=== PATIENT | male | born 1945 ===

== ENCOUNTER 2019-11-11 09:17 | Outpatient (CLI) | payer MEDICARE, MEDICAID, SELFPAY ==
--- NOTE | ~2019-11-11 | US_ITS ---
EXAMINATION: US retroperitoneal comp DATE: 11/11/2019 10:06 INDICATION: Chronic flank pain, left greater than right. TECHNIQUE: Multiple ultrasound grayscale images of the kidneys were obtained. COMPARISON: 12/10/2016 FINDINGS: The right kidney measures 9.8 x 5.7 x 4.9 cm. The left kidney measures 10.0 x 5.2 x 5.6 cm. No interv al change in a 1.5 cm anechoic exophytic cyst at the lower pole of the right kidney. Also unchanged i s a cluster of 3 small anechoic cystsat the upper pole of the left kidney the largest measuring 2.6 c m in maximal diameter. There is no hydronephrosis in either kidney. No stones identified. The bladde r is normal with bilateral ureteral jets visualized on color Doppler. IMPRESSION: 1. No interval change in bilateral renal cysts. No hydronephrosis. Reviewed, dictated and finalized at location A.
== END 2019-11-11 09:18 | disposition home or self-care (01) ==
PROVIDERS: PCP Student in an Organized Health Care Education/Training Program; Visit Provider Student in an Organized Health Care Education/Training Program
DX: R10.9 Unspecified abdominal pain (principal); G89.29 Other chronic pain
CPT/HCPCS: 76770

== ENCOUNTER 2021-08-23 00:31 | Day surgery (SDC) | payer MEDICARE, SELFPAY ==
[2021-08-13 14:25] VITALS: BMI 34.8
--- NOTE | 2021-08-22 16:34 | WPDANESEPP ---
Anes - Eval Pre Procedure Procedure: Operation Date: 08/23/21 09:30 Proposed Procedures p Screening Colonoscopy - Ander Shell MD Date/Time: 08/22/21 16:34 Pre Op Diagnosis: hx of colon polyps Patient Data Age: 76 Gender: M Height: 1.68 m Weight: 98 kg Allergies Allergy/AdvReac Type Severity Reaction Status Date / Time lisinopril Allergy Unknown Anaphylaxis Verified 08/13/21 14:13 losartan AdvReac Hypotension Verified 08/13/21 14:13 Home Medications Medication Instructions Recorded Confirmed Type albuterol sulfate 1 puff INHALATION DAILY 08/13/21 08/13/21 History amlodipine 10 mg PO DAILY 08/13/21 08/13/21 History budesonide-formoterol [Symbicort] 1 puff INHALATION DAILY 08/13/21 08/13/21 History bumetanide 1 mg PO BID 08/13/21 08/13/21 History clopidogrel 75 mg PO DAILY 08/13/21 08/13/21 History empagliflozin [Jardiance] 25 mg PO DAILY 08/13/21 08/13/21 History finasteride 5 mg PO DAILY 08/13/21 08/13/21 History insulin aspart U-100 [Novolog 6 unit SUBCUT TIDWM 08/13/21 08/13/21 History Flexpen U-100 Insulin] insulin degludec [Tresiba 40 unit SUBCUT DAILY 08/13/21 08/13/21 History FlexTouch U-200] metformin 1,000 mg PO BID 08/13/21 08/13/21 History metoprolol tartrate 25 mg PO BID 08/13/21 08/13/21 History mirabegron [Myrbetriq] 50 mg PO DAILY 08/13/21 08/13/21 History oxybutynin chloride 10 mg PO DAILY 08/13/21 08/13/21 History rosuvastatin 40 mg PO DAILY 08/13/21 08/13/21 History spironolactone 25 mg PO DAILY 08/13/21 08/13/21 History Patient hx anesthesia problems: none Family hx anesthesia problems: none Results Review: All pre-operative results and documents have been reviewed as part of the pre-operative evaluation. [facility] Past Medical History Medical History (Updated 08/22/21 @ 16:39 by Brandyn Trejo CRNA) Arthritis Asthma CAD (coronary atherosclerotic disease) Diabetes H/O: HTN (hypertension) History of smoking Hyperlipidemia Obesity ИРИНА (obstructive sleep apnea) Surgical History Surgical History (Updated 08/22/21 @ 16:39 by Brandyn Trejo CRNA) Stented coronary artery Family History Family History Sibling Diabetes mellitus Family history of cardiovascular disease Mother Family history of cardiovascular disease, Onset Age: 69 Other Asthma Family history of arthritis Family history of congestive heart failure Family history of osteoporosis Hypertension Social History Social History Smoking status: Never smoker Alcohol intake: never Living arrangements: alone Spiritual care concerns: No Exam Day of Procedure 08/22/21 16:34 Patient weight: obese
[2021-08-23 08:45] VITALS: BP 140/64; PULSE 61; RESP 18; TEMP 35.3; O2SAT 99; BMI 34.0
--- NOTE | 2021-08-23 09:05 | WPDANESEFPP ---
Anes - Eval Final PreProcedure Day of Procedure 08/23/21 09:05 Patient weight: obese Heart: regular rate and rhythm Lungs: clear to auscultation Airway: Mallampati scale class II Neurological: alert and oriented Last oral intake: >/= 8 hours ASA classification: III Emergent: no Anesthetic plan: proceed Anesthesia type and monitoring: general GIVS and standard monitoring Results Review: All pre-operative results and documents have been reviewed as part of the pre-operative evaluation. Informed Consent: The patient's anesthetic plan and its attendant risks and benefits were discussed with the patient/family/POA. Questions were solicited and answers provided to the satisfaction of the patient/family/POA.
--- NOTE | 2021-08-23 09:09 | PM.HPGS ---
History of Present Illness History of Present Illness Consent: Risks, benefits, and alternatives have been discussed and questions answered. Patient agrees to proceed with procedure. Chief complaint: hx of colon polyps Narrative: Taz Sims is a 76 year old male with colon polyp in 2017 Review of Systems Constitutional: Constitutional: Denies headache(s) and Denies weakness Eyes: Eyes: Denies blurry vision ENT: Reports Normal hearing present, Denies headache(s) and Denies neck pain Cardiovascular: Cardiovascular: Denies chest pain and Denies dyspnea Respiratory: Respiratory: Denies dyspnea Gastrointestinal: Gastrointestinal: Reports no additional gastrointestinal complaints Genitourinary: Genitourinary: Denies dysuria Musculoskeletal: Musculoskeletal: Denies neck pain Integumentary/Breasts: Skin/Breast: Denies dry skin Neurologic: Reports Normal hearing present, Denies headache(s) and Denies weakness Psychiatric: Psychiatric: Denies anxiety Endocrine: Endocrine: Denies change in body appearance Hematologic/Lymphatic: Hematologic/Lymphatic: Denies easy bleeding Allergic/Immunologic: Allergic/Immunologic: Denies urticaria PMFSH Past Medical History Medical History (Updated 08/23/21 @ 09:09 by Ander Shell MD) Adenomatous colon polyp Arthritis Asthma CAD (coronary atherosclerotic disease) Diabetes H/O: HTN (hypertension) History of smoking Hyperlipidemia Obesity ИРИНА (obstructive sleep apnea) Surgical History Surgical History (Updated 08/22/21 @ 16:39 by Brandyn Trejo CRNA) Stented coronary artery Family History Family History Sibling Diabetes mellitus Family history of cardiovascular disease Mother Family history of cardiovascular disease, Onset Age: 69 Other Asthma Family history of arthritis Family history of congestive heart failure Family history of osteoporosis Hypertension Social History Social History Smoking status: Never smoker Alcohol intake: never Living arrangements: alone Spiritual care concerns: No Meds Home Medications and Allergies Home Medications Medication Instructions Recorded Confirmed Type albuterol sulfate 1 puff INHALATION DAILY 08/13/21 08/23/21 History amlodipine 10 mg PO DAILY 08/13/21 08/23/21 History budesonide-formoterol [Symbicort] 1 puff INHALATION DAILY 08/13/21 08/23/21 History bumetanide 1 mg PO BID 08/13/21 08/23/21 History clopidogrel 75 mg PO DAILY 08/13/21 08/23/21 History empagliflozin [Jardiance] 25 mg PO DAILY 08/13/21 08/23/21 History finasteride 5 mg PO DAILY 08/13/21 08/23/21 History insulin aspart U-100 [Novolog 6 unit SUBCUT TIDWM 08/13/21 08/23/21 History Flexpen U-100 Insulin] insulin degludec [Tresiba 40 unit SUBCUT DAILY 08/13/21 08/23/21 History FlexTouch U-200] metformin 1,000 mg PO BID 08/13/21 08/23/21 History metoprolol tartrate 25 mg PO BID 08/13/21 08/23/21 History mirabegron [Myrbetriq] 50 mg PO DAILY 08/13/21 08/23/21 History oxybutynin chloride 10 mg PO DAILY 08/13/21 08/23/21 History rosuvastatin 40 mg PO DAILY 08/13/21 08/23/21 History spironolactone 25 mg PO DAILY 08/13/21 08/23/21 History Allergies Allergy/AdvReac Type Severity Reaction Status Date / Time lisinopril Allergy Unknown Anaphylaxis Verified 08/23/21 08:55 losartan AdvReac Hypotension Verified 08/23/21 08:55 Vital Signs Vital Signs - 24 hr 08/23/21 08:45 Temperature 95.5 F L Pulse Rate 61 Respiratory Rate 18 Blood Pressure 140/64 Pulse Oximetry 99 Exam Const: General: comfortable and no acute distress HENMT: General nose exam: Normal nares present Eyes: General: appearance normal, both eyes and all related structures Neck: Neck: no JVD Resp: Auscultation: clear to auscultation bilaterally Cardio: Rate: regular rate Rhythm: regular rhythm GI: Inspection:
[2021-08-23 09:15] LABS: Glucose Point of Care 109 mg/dl (65-105)
[2021-08-23] MEDS: LACTATED RINGERS 1,000 ML 150 ML IV CONT (09:16)
[2021-08-23 09:42] VITALS: BP 109/64; PULSE 78; RESP 12; O2SAT 95
[2021-08-23 09:52] VITALS: BP 136/72; PULSE 55; RESP 18; O2SAT 100
[2021-08-23 10:00] LABS: Glucose Point of Care 113 mg/dl (65-105)
[2021-08-23 10:02] VITALS: BP 107/70; PULSE 61; RESP 18; O2SAT 98
[2021-08-23] MEDS: PROPARACAINE HCL 0.5% 15 ML OPHTH SOLN 1 DROP EACH EYE (10:20)
[2021-08-23] MEDS: DICLOFENAC SODIUM 0.1% OPHTH SOLN 2.5 ML BOTTLE 1 DROP EACH EYE (10:20)
--- NOTE | 2021-08-23 12:58 | SUR.PHASEII ---
0940- Pt received in post-op c/o of pain and watering to right eye. Right eye appears red. Dr. Phillips made aware. Corneal abrasion protocol ordered. Pt's eye appeared to be improved after eye drops administered. Pt agreed he would notify physician if symptoms do not improve.
== END 2021-08-23 10:45 | disposition home or self-care (01) ==
PROVIDERS: PCP Student in an Organized Health Care Education/Training Program; Visit Provider Internal Medicine Gastroenterology
PROC: 0DJD8ZZ Inspection of Lower Intestinal Tract, Via Natural or Artificial Opening Endoscopic (ICD-10-PCS; CPT 45378; principal; 2021-08-23 09:30)
DX: Z12.11 Encounter for screening for malignant neoplasm of colon (principal); D12.3 Benign neoplasm of transverse colon; K63.5 Polyp of colon; K57.30 Diverticulosis of large intestine without perforation or abscess without bleeding; K64.8 Other hemorrhoids; I10 Essential (primary) hypertension; I25.10 Atherosclerotic heart disease of native coronary artery without angina pectoris; E11.9 Type 2 diabetes mellitus without complications; E78.5 Hyperlipidemia, unspecified; G47.33 Obstructive sleep apnea (adult) (pediatric); J45.909 Unspecified asthma, uncomplicated; E66.9 Obesity, unspecified; Z68.34 Body mass index [BMI] 34.0-34.9, adult; Z79.51 Long term (current) use of inhaled steroids; Z79.02 Long term (current) use of antithrombotics/antiplatelets; Z79.84 Long term (current) use of oral hypoglycemic drugs; Z79.4 Long term (current) use of insulin
CPT/HCPCS: 45385; 82948; 88305; A9270; J2704; J7120

== ENCOUNTER 2023-03-18 13:31 | Outpatient (CLI) | payer MEDICARE, SELFPAY ==
--- NOTE | ~2023-03-18 | US_ITS ---
EXAMINATION: US carotid duplex BI DATE: 03/18/2023 16:04 INDICATION: Transient ischemic episode. Carotid atherosclerosis and stenosis. TECHNIQUE: Grayscale, color Doppler, and pulsed Doppler images of the cervical carotid arteries were obtained. The degree of vessel stenosis is placed in one of the following categories: normal, <50%, 5 0-69%, >=70% but less than near-occlusion, near-occlusion, or total occlusion. Note that percent sten osis relative to normal distal artery lumen diameter is indirectly measured from velocity measurement s as described by Greg, et al. Radiology 2003; 229:340-346. COMPARISON: None. FINDINGS: RIGHT: The right common carotid artery (CCA) peak systolic velocity (PSV) is 53 cm/s. The right internal car otid artery (ICA) PSV is 51 cm/s. The right ICA end-diastolic velocity (EDV) is 11 cm/s. The right IC A/CCA PSV ratio is 1.0. Grayscale and color Doppler images yield an estimate of <50% diameter reducti on from plaque in the ICA. The external carotid artery (ECA) PSV is 68 cm/s. There is antegrade flow in the right vertebral artery. LEFT: The left CCA PSV is 59 cm/s. The left ICA PSV is 82 cm/s. The left ICA EDV is 18 cm/s. The left ICA/C CA PSV ratio is 1.4. Grayscale and color Doppler images yield an estimate of <50% diameter reduction from plaque in the ICA. The ECA PSV is 61 cm/s. There is antegrade flow in the left vertebral artery. IMPRESSION: 1. <50% stenosis in the right internal carotid artery. 2. <50% stenosis in the left internal carotid artery. Reviewed, dictated and finalized at location A.
--- NOTE | ~2023-03-18 | MR_ITS ---
EXAMINATION: MR brain/brain stem wo/w con DATE: 03/18/2023 14:33 INDICATION: MILD VASCULAR DEMENTIA W/O BEHAVORIAL DISTURBANCE TECHNIQUE: Magnetic resonance imaging (MRI) of the brain and brainstem was performed without and with 19 mL MultiHance intravenous contrast. Sequences included sagittal and axial T1-weighted SE, axial d iffusion-weighted FS EPI ASSET, axial T2*-weighted GRE, axial T2-weighted FLAIR Propeller, and axial T2-weighted Propeller. Postcontrast axial and coronal T1-weighted SE was obtained. Apparent diffusion coefficient (ADC) maps were created. COMPARISON: None. FINDINGS: No abnormal restricted diffusion to suggest acute ischemic infarct. No MRI evidence of hemorrhage or extra-axial collection. No suspicious foci of susceptibility to suggest prior intraparenchymal hemorr becca. Moderate patchy white matter hyperintensity, likely representing moderate small vessel ischemic disease. Moderate generalized parenchymal volume loss. The basilar cisterns are patent. Flow voids a re preserved. Mild mucosal thickening in the anterior ethmoid air cells and left frontal sinus, the r emaining aerated spaces are clear. Globes and orbital contents are within normal limits. IMPRESSION: No acute intracranial process. Moderate atrophy and small vessel ischemic disease. Reviewed, dictated and finalized at location K. IMPRESSION: No acute intracranial process. Moderate atrophy and small vessel ischemic disea se.
== END 2023-03-18 13:32 | disposition home or self-care (01) ==
PROVIDERS: PCP Student in an Organized Health Care Education/Training Program; Visit Provider Student in an Organized Health Care Education/Training Program
DX: I65.23 Occlusion and stenosis of bilateral carotid arteries (principal); F01.A0 Vascular dementia, mild, without behavioral disturbance, psychotic disturbance, mood disturbance, and anxiety; R93.0 Abnormal findings on diagnostic imaging of skull and head, not elsewhere classified
CPT/HCPCS: 70553; 93880; A9577

== ENCOUNTER 2023-03-25 08:04 | Outpatient (CLI) | payer MEDICARE, SELFPAY ==
--- NOTE | 2023-03-25 | ECHO_ITS ---
Patient Info Name: Taz Sims Age: 78 years : 1945 Gender: Male Ht: 72 in Wt: 220 lbs BSA: 2.27 m2 HR: 66 bpm BP: 163 / 91 mmHg Heart Rhythm: Sinus Rhythm Technical Quality: Good Exam Date: 03/25/2023 9:08 AM Exam Location: [facility] Patient Status: Outpatient Admit Date: 03/25/2023 Staff Ordering Physician: GennaroAdryan DO Interior Horticulturist: Margaret Burt RDCS Attending Provider: Gennaro, Adryan LOCKE Exam Type: CA echo doppler color flow Study Info Indications - TIA ?? Complete two-dimensional, color flow and Doppler transthoracic echocardiogram is performed. Summary 1. Complete two-dimensional, color flow and Doppler transthoracic echocardiogram is performed. 2. Left ventricular chamber dimension is normal. 3. Left ventricular systolic function is moderately reduced, estimated at 40-45%. 4. There is mild concentric increased left ventricular wall thickness. 5. The left ventricular diastolic function is grade I diastolic dysfunction. 6. E/e' 15 is elevated. 7. There is moderate aortic valve sclerosis. 8. There is mild aortic valve stenosis with a peak velocity of 173 cm/s, mean gradient of 5 mmHg, and aortic valve area of 1.6 cm2. 9. The mitral valve has moderately calcified annulus. 10. There is mild mitral valve regurgitation. 11. There is mild tricuspid valve regurgitation. 12. No pulmonary hypertension, estimated pulmonary arterial systolic pressure is 32 mmHg. Left Ventricle E/e' 15 is elevated. Left ventricular chamber dimension is normal. Left ventricular systolic function is moderately reduced, estimated at 40-45%. There is mild concentric increased left ventricular wall thickness. The left ventricular diastolic function is grade I diastolic dysfunction. Right Ventricle Right ventricular systolic function is normal and with normal TAPSE 2.2 cm. Right ventricular chamber dimension is normal. Left Atria Left atrial chamber dimension is normal. Right Atria Right atrial chamber dimension is normal. Aortic Valve The aortic valve is trileaflet. There is moderate aortic valve sclerosis. There is mild aortic valve stenosis with a peak velocity of 173 cm/s, mean gradient of 5 mmHg, and aortic valve area of 1.6 cm2. There is no aortic valve regurgitation. Pulmonic Valve There is no pulmonic regurgitation. Mitral Valve The mitral valve has moderately calcified annulus. There is no mitral valve stenosis. There is mild mitral valve regurgitation. Tricuspid Valve There is mild tricuspid valve regurgitation. No pulmonary hypertension, estimated pulmonary arterial systolic pressure is 32 mmHg. Pericardium/Pleural There is no pericardial effusion. Inferior Vena Cava Normal inferior vena cava with >50% collapse upon inspiration consistent with normal right atrial pressure, 5 mmHg. Aorta The aortic root size at the sinus of Valsalva is normal. Left Ventricular Outflow Tract Name Value Normal LVOT 2D LVOT Diameter 2.1 cm LVOT Doppler LVOT Peak Gradient 2 mmHg LVOT Mean Gradient 1 mmHg LVOT VTI 16 cm LVOT VTI/AV VTI Ratio 0.5
== END 2023-03-25 08:05 | disposition home or self-care (01) ==
PROVIDERS: PCP Student in an Organized Health Care Education/Training Program; Visit Provider Student in an Organized Health Care Education/Training Program
DX: G45.9 Transient cerebral ischemic attack, unspecified (principal); I36.1 Nonrheumatic tricuspid (valve) insufficiency; I35.1 Nonrheumatic aortic (valve) insufficiency; I34.0 Nonrheumatic mitral (valve) insufficiency
CPT/HCPCS: 93306

== ENCOUNTER 2023-09-10 06:36 | Outpatient (RCR) | payer MEDICARE, SELFPAY | END 2023-09-10 23:59 | disposition home or self-care (01) | LOC: ANHAUDIO 06:36 | PROVIDERS: PCP Student in an Organized Health Care Education/Training Program | DX: Z46.1 Encounter for fitting and adjustment of hearing aid (principal) | CPT/HCPCS: 99199 ==

== ENCOUNTER 2025-01-12 13:06 | Outpatient (CLI) | payer MEDICARE, SELFPAY ==
--- NOTE | ~2025-01-12 | MR_ITS ---
EXAMINATION: MR foot RT wo con DATE: 01/12/2025 13:58 INDICATION: Acute osteomyelitis in the region post prior great toe amputation TECHNIQUE: Magnetic resonance imaging (MRI) of the right foot was performed without intravenous contr ast. Sequences included sagittal T1-weighted FSE, sagittal fluid sensitive FSE STIR, coronal PD-weigh kelvin FS FSE, coronal T1-weighted FSE, axial PD-weighted FS FSE, and axial PD-weighted FSE. COMPARISON: None FINDINGS: Status post great toe amputation of the first distal phalanx with osteotomy involving a portion of th e head of the first proximal phalanx. There is a lax appearance of the retracted flexor hallucis long us tendon secondary to the amputation of its distal insertion. Normal alignment at the remaining bone s. There is normal bone marrow signal throughout with no fracture or osteomyelitis or other pathologi c marrow replacing process. 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 Physiologic amount fluid in the joint spaces. No abscess, joint effusion, tenosynovi tis or other abnormal fluid collections. The Lisfranc ligament complex as well as the collateral liga ment complex at the metatarsophalangeal and interphalangeal joints are normal. Visualized portion of the remaining flexor and extensor tendons are normal. Small plantar calcaneal spur at the origin of t he plantar aponeurosis. Prominent fatty atrophy of the intrinsic muscular the foot which could be due to disuse or chronic neuropathy. IMPRESSION: 1. 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 No evident abscess or residual/recurrent osteophytes in the right foot. Reviewed, dictated and finalized at location A. IMPRESSION: 1. 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 No evident abscess or residual/recu rrent osteophytes in the right foot.
== END 2025-01-12 13:07 | disposition home or self-care (01) ==
PROVIDERS: PCP Surgery Vascular Surgery; Visit Provider Podiatrist Foot & Ankle Surgery
DX: M86.171 Other acute osteomyelitis, right ankle and foot (principal)
CPT/HCPCS: 73718